=== PATIENT | male | born 1985 | race Caucasian/White ===

== ENCOUNTER 2025-04-12 00:25 | Emergency (ER) | payer MEDICAID ==
[2025-04-12 02:53] LABS: CARBON DIOXIDE,CO2 29.0 mEq/L (21-32); CHLORIDE,CL 103.0 mEq/L (98-107); POTASSIUM,K 3.4 mEq/L (3.5-5.1); SODIUM,NA 140.0 mEq/L (136-145)
[2025-04-12 02:54] LABS: A/G RATIO 0.8 (1-2); ALANINE AMINOTRANSFERASE,ALT 54.0 U/L (16-63); ASPARTATE AMNIOTRANSFERASE,AST 22.0 U/L (15-37); BILIRUBIN TOTAL 0.4 mg/dL (0.2-1.0); BLOOD UREA NITROGEN,BUN 13.0 mg/dL (7-18); CREATINE KINASE,CK 89.0 U/L (39-308); CREATININE 0.8 mg/dL (0.7-1.3); EST CRCL DRUG DOSING (CG) 149.19 mL/min; ESTIMATED GFR 114.0 mL/min (>60); GLUCOSE RANDOM 159.0 mg/dL (70-99); PROTEIN TOTAL,TP 7.6 g/dl (6.4-8.2); TROPONIN I HIGH SENSITIVITY 7.0 pg/mL (<=76)
[2025-04-12 02:59] LABS: BASOPHILS ABSOLUTE AUTO 0.1 K/mm3 (0.0-0.2); BASOPHILS PERCENT AUTO 0.6 % (0.0-1.0); EOSINOPHILS ABSOLUTE AUTO 0.2 K/mm3 (0.0-0.4); EOSINOPHILS PERCENT AUTO 1.6 % (0.0-6.0); IMMATURE GRAN ABSOLUTE AUTO 0.04 K/mm3 (0.00-0.05); IMMATURE GRAN PERCENT AUTO 0.4 % (0.0-0.4); LYMPHOCYTES ABSOLUTE AUTO 2.0 K/mm3 (1.0-4.8); LYMPHOCYTES PERCENT AUTO 19.7 % (24.0-44.0); MEAN PLATELET VOLUME 9.1 fl (9.4-12.4); MONOCYTES ABSOLUTE AUTO 0.6 K/mm3 (0.0-0.8); MONOCYTES PERCENT AUTO 5.7 % (0.0-8.0); NEUTROPHILS ABSOLUTE AUTO 7.3 K/mm3 (1.8-7.7); NEUTROPHILS PERCENT AUTO 72.0 % (41.0-71.0); NRBC ABSOLUTE 0.00 (0.00-0.02); NRBC PERCENT 0.0 % (0.0-0.2); PLATELET COUNT,PLT 258 K/mm3 (150-400); RED BLOOD CELL COUNT 5.33 M/mm3 (4.52-5.90); WHITE BLOOD CELL COUNT,WBC 10.09 K/mm3 (3.9-11.3)
== END 2025-04-12 03:20 | disposition home or self-care (01) ==
LOC: JD.ED 00:25
DX: F41.9 Anxiety disorder, unspecified (principal)
CPT/HCPCS: 36415; 71045; 71045-26; 80053; 82550; 84484; 85025; 93005; 93010; 99283; 99285